=== PATIENT | male | born 1960 | race Caucasian/White ===

== ENCOUNTER 2024-06-29 07:30 | Day surgery (SDC) | payer BC, SELFPAY ==
[2024-06-23 16:58] VITALS: BMI 29.2
[2024-06-29 08:09] VITALS: BP 149/95; PULSE 63; RESP 17; TEMP 36.1; O2SAT 99
[2024-06-29] MEDS: LACTATED RINGERS 1000ML 1,000 ML 25 ML IV (08:15)
[2024-06-29 08:52] VITALS: O2SAT 99
--- NOTE | 2024-06-29 08:53 | P.PNANES_ITS ---
[facility] Disclaimer: The information contained in this section may have been updated after the patient was seen, as this information can be updated by other users. Medical History No significant past medical history Surgical History History of colonoscopy History of appendectomy Family History Other Family history of MS (myocardial infarction) Family history of coronary artery disease Social History Smoking Status: Never smoker alcohol intake: never substance use type: denies use current occupational status: other Travel in the last 8 weeks: None [facility] Anesthesia Checklist Patient Identification Patient Identification: Arm Band Structural Data Admitted From: Home Planned Operative Procedure/s: Colonoscopy Consent for Planned Operative Procedure(s) Verified: Yes Verified Documents: Surgical Consent and History and Physical NPO Status Verified Time NPO: 00:00 Additional verifications Anesthesia Reactions: No Airway Assessment Mallampati Score:: Class II C-Spine Mobility Assessed: Yes TMJ Mobility Assessed: Yes Dentition: Good Dentition Neurological Assessment Level of Consciousness: Awake, Alert and Appropriate Anesthesia Plan Anesthesia Risk discussed: Yes Anesthesia Plan: Verified ASA Class: II Anesthesia Type: MAC
--- NOTE | 2024-06-29 08:54 | EXP.HP ---
History of Present Illness *Admission Date: 06/29/24 *Reason for visit:: Screening *History of present illness: Mr. Samayoa is a 63-year-old gentleman who is here for screening colonoscopy. The examination is deemed medically necessary for colonoscopy. The patient has been seen, interviewed and examined prior to the procedure by both myself and the anesthesia provider. [facility] Disclaimer: The information contained in this section may have been updated after the patient was seen, as this information can be updated by other users. Medical History (Updated 06/29/24 @ 08:57 by Russel Bonilla II, MD) No significant past medical history Surgical History History of colonoscopy History of appendectomy Family History Other Family history of AR (myocardial infarction) Family history of coronary artery disease Social History Smoking Status: Never smoker alcohol intake: never substance use type: denies use current occupational status: other Travel in the last 8 weeks: None Review of Systems Review of Systems Review of systems (narrative): Negative *Cardiovascular Comments: Negative *Gastrointestinal Comments: Negative *Genitourinary Comments: Negative *Musculoskeletal Comments: Negative *Neurologic Comments: Negative Meds Home Medications and Allergies Home Medications ?Medication ?Instructions ?Recorded ?Confirmed ?Type No Known Home Medications 06/23/24 06/29/24 History New Prescriptions to Start Prescriptions: Allergies Allergy/AdvReac Type Severity Reaction Status Date / Time No Known Allergies Allergy Verified 06/29/24 08:08 Exam Data for Last 24 hours Vital signs and Labs for Last 24 Hours: Temp Pulse Resp BP Pulse Ox O2 Del Method 97 F L 63 17 149/95 H 99 Room Air 06/29/24 08:09 06/29/24 08:09 06/29/24 08:09 06/29/24 08:09 06/29/24 08:09 06/29/24 08:09 *Routine HEENT Exam Head: Present normocephalic Eye: Present EOMI and PERRL ENT: Present mucous membranes moist *Routine Neck Exam Neck: Present supple *Routine Respiratory Exam Respiratory: Present CTA bilaterally *Routine Cardiovascular Exam Cardiovascular: Present RRR *Routine Abdominal Exam Abdominal: Present soft and normoactive bowel sounds; Absent tenderness *Routine Rectal Exam Rectal:: deferred *Routine Genitalia Exam Genitalia:: deferred *Routine Extremities Exam Extremities: Absent cyanosis, clubbing or edema *Routine Skin Exam Skin: Present warm; Absent rash *Routine Neurological Exam Neurological: Present alert and oriented X3 Assessment and Plan *Assessment and plan (1) Screening for colon cancer: Status: Acute Category: Medical Code(s): Z12.11 - Encounter for screening for malignant neoplasm of colon Plan A/P: 1. Screening for colon cancer is the preprocedural diagnosis. The patient will be anesthetized/sedated using MAC sedation. The patient has been seen and examined. Cardiac and lung assessment prior to the examination is stable. Proceed with planned colonoscopy
--- NOTE | 2024-06-29 08:57 | P.PCN_ITS ---
[facility] Procedure Note Date: 06/29/24 Procedure Note:: Colonoscopy Procedure Report: Colonoscopy with cold snare polypectomy Endoscopist: Russel Bonilla II, MD Referring physician: LATISHA Dave Date of Procedure: June 29, 2024 Equipment: Olympus 190 variable stiffness pediatric colonoscope Sedation: MAC sedation Indication: Mr. Samayoa is a 63-year-old gentleman who is here for screening colonoscopy. His last colonoscopy was 10 to 15 years ago in [facility]. There were no significant findings at that time. He reports no abdominal pain, weight loss, change in his bowel habits or rectal bleeding. He does report loose stools. He reports no family history of colon cancer. Procedure: Prior to the procedure, a history and physical exam was performed, and patient's medications and allergies were reviewed. The risks, benefits and alternatives of the sedation and procedure were discussed with the patient. All questions were answered and informed consent was obtained. The patient was brought to the procedure room. Patient identification and proposed procedure were verified by the physician and the nurse. The patient was placed in a left lateral decubitus position and the scope was passed under direct vision. Throughout the procedure, the patient's blood pressure, pulse, and oxygen saturations were monitored continuously. The colonoscopy was accomplished without difficulty. The patient tolerated the procedure well. Findings: On digital rectal examination there was normal rectal tone. The prostate was 2+, smooth, soft, symmetric without nodules. There were no external hemorrhoids. The colonoscope was introduced through the anal canal to the rectum and advanced to the cecum. The ileocecal valve and appendiceal orifice were identified. The scope was advanced a short distance into the ileum which appeared grossly normal. The scope was then withdrawn into the colon. The cecum, ascending and transverse colon were normal. There were 2 diminutive polyps in the descending colon (4 and 4 mm) that were both removed via cold snare polypectomy. The remainder of the sigmoid and rectum were normal. Upon retroflexion within the rectum there were grade 1 internal hemorrhoids.The preparation was excellent throughout with Marcy Preparation Score of 9. The c ecal time was 11 minutes. Impression: 1. Diminutive descending colon polyps x 2 (4 and 4 mm) Plan: I will follow-up the polyp histology and recommend repeat surveillance colonoscopy again in 7 years if the polyps are adenomatous. I would encourage bulking fiber supplementation on a maintenance basis.
[2024-06-29 09:14] VITALS: BP 100/61; PULSE 59; RESP 16; TEMP 36.1; O2SAT 96
[2024-06-29 09:24] VITALS: BP 105/59; PULSE 57; RESP 16; O2SAT 94
[2024-06-29 09:34] VITALS: BP 116/61; PULSE 63; RESP 15; O2SAT 97
[2024-06-29 09:44] VITALS: BP 126/77; PULSE 57; RESP 16; TEMP 36.6; O2SAT 98
== END 2024-06-29 09:44 | disposition home or self-care (01) ==
PROVIDERS: PCP Nurse Practitioner Family; Visit Provider Internal Medicine Gastroenterology
PROC: (CPT 45385; principal; 2024-06-29 09:30)
DX: K63.5 Polyp of colon (principal); K64.0 First degree hemorrhoids; Z12.11 Encounter for screening for malignant neoplasm of colon
CPT/HCPCS: 45385; 99221; J7120